=== PATIENT | male | born 1985 | race Caucasian/White ===

== ENCOUNTER 2025-08-18 00:22 | Emergency (ER) | payer OTHER, BC ==
[~2025-08-18] VITALS: Ht 175.3 cm; Wt 79.0 kg
[2025-08-18 00:28] VITALS: TEMP 36.7; O2SAT 100
[2025-08-18] MEDS: KETOROLAC 30MG/ML VIAL IM ONE (01:00)
[2025-08-18] MEDS ORDERED: IBUP-1455 MT (02:18)
[2025-08-18 02:30] VITALS: BP 141/97; PULSE 82; RESP 18; O2SAT 100
== END 2025-08-18 02:31 | disposition home or self-care (01) ==
LOC: ER 00:22
DX: S20.219A Contusion of unspecified front wall of thorax, initial encounter (principal); S60.222A Contusion of left hand, initial encounter; V49.40XA Driver injured in collision with unspecified motor vehicles in traffic accident, initial encounter; Y93.89 Activity, other specified; Y92.89 Other specified places as the place of occurrence of the external cause; Y99.8 Other external cause status
CPT/HCPCS: 99284; 71101; 73130; 29130; 96372; J1885